=== PATIENT | male | born 1985 | race Caucasian/White ===

== ENCOUNTER 2019-01-15 07:47 | Emergency (ER) | payer OTHER ==
[2019-01-15 07:58] VITALS: BP 123/91
--- NOTE | 2019-01-15 08:10 | ED Physician Documentation ---
PD HPI LOWER EXT INJURY - Stated complaint Stated Complaint: ANKLE INJURY - Chief complaint Chief Complaint: Ext Problem - Additional information Additional information: This is a 33-year-old male who denies past medical history presents with left ankle pain since Tuesday. On Tuesday he was walking the house and he impacted his left lateral malleolar region of his ankle on a wooden toy that was sitting out. He had immediate swelling in the area, and he has been able to walk on it but the pain is not subsided over the recent several days. He has been icing it and wrapping it and he does not feel that has made significant improvement. The pain is mild to moderate rest, severe with pressure on the area Review of Systems Skin: reports: Other (+ for swelling an bruising in ankle) Musculoskeletal: reports: Joint pain PD PAST MEDICAL HISTORY - Past Medical History Past Medical History: No - Past Surgical History Past Surgical History: No - Present Medications Home Medications: Ambulatory Orders Medication Instructions Recorded Confirmed Ibuprofen [Motrin] 800 mg PO Q8H PRN #30 tablet 01/15/19 - Allergies Allergies/Adverse Reactions: Allergies Allergy/AdvReac Type Severity Reaction Status Date / Time No Known Drug Allergies Allergy Verified 01/15/19 07:58 - Social History Does the pt smoke?: No Smoking Status: Never smoker PD ED PE NORMAL - Vitals Vital signs reviewed: Yes - General General: Alert and oriented X 3 - HEENT HEENT: Atraumatic - Cardiac Cardiac: Strong equal pulses - Respiratory Respiratory: No respiratory distress - Abdomen Abdomen: Non distended - Extremities Extremities: Other (There is swelling and slight ecchymosis just anterior to the left lateral mall bolus. The spot is tender to palpation. The inferior aspect of the malleolus is nontender. Remainder of the foot is atraumatic in appearance, is no tenderness to the tarsals, Metatarsals, or toes. Patient has full active range of motion of his ankle with excellent strength, brisk capillary refill over his digits, and sensation is intact light touch.) Results - Vitals Vitals: Vital Signs - 24 hr 01/15/19 07:56 Temperature 37.0 C Heart Rate 72 Respiratory 19 Rate Blood Pressure 123/91 H O2 Saturation 100 Oxygen O2 Source Room air - Rads (name of study) ankle XR L Radiology: Final report received (No fracture, small tibiotalar effusion suspected) PD MEDICAL DECISION MAKING - ED course Complexity details: considered differential (Sprain, strain, fracture, avulsion fracture, contusion, tendinitis.) ED course: Pt presents with ankle pain after impacting it, he is neurovascularly intact and able to bear weight. XR shows a possible small effusion, no fracture. I discussed that he likely has a contusion and reviewed RICE. He should follow up with his PCP if he has continued symptoms in 1 week. ED return precautions reviewed and patient was discharged. Departure - Departure Disposition: 01 Home, Self Care Clinical Impression: Pain in extremity Condition: Good Instructions: ED RICE Follow-Up: Your,PCP [Other] (For follow up on symptoms in 1 week if not improving) Prescriptions: Ibuprofen [Motrin] 800 mg PO Q8H PRN #30 tablet PRN Reason: PAIN &/OR FEVER Comments: You were seen today for left ankle pain. There may be some fluid around her left ankle joint, but there are no signs of a fracture or dislocation. Please rest ice elevate and compress the air ankle, take ibuprofen as prescribed. Follow-up with your primary care provider in 1 week if this is not improving. Discharge Date/Time: 01/15/19 09:01
--- NOTE | 2019-01-15 08:41 | XRAY Report ---
Reason: Impacted left ankle lateral mal on Tuesday Procedure Date: 01/15/2019 Accession Number: [id number] / [id number] Procedure: XR - Ankle 3 View LT CPT Code: FULL RESULT: EXAM: LEFT ANKLE RADIOGRAPHY EXAM DATE: 01/15/2019 08:24 AM. CLINICAL HISTORY: Impacted left ankle lateral mal on Tuesday. COMPARISON: None. TECHNIQUE: 3 views. FINDINGS: Bones: Normal. No fractures or bone lesions. Joints: Small tibiotalar joint effusion suspected. Spurring along the anterior aspect of distal tibia. No subluxations. The ankle mortise is normally aligned. Soft Tissues: Normal. No soft tissue swelling. IMPRESSION: 1. Small tibiotalar joint effusion suspected. 2. No fracture evident. RADIA
== END 2019-01-15 09:01 | disposition home or self-care (01) ==
LOC: ED 07:47
DX: M25.572 Pain in left ankle and joints of left foot (principal)
CPT/HCPCS: 99283; 99284

== ENCOUNTER 2020-03-12 16:36 | Emergency (ER) | payer OTHER ==
--- NOTE | 2020-03-12 17:00 | ED Physician Documentation ---
PD HPI UPPER EXT INJURY - Stated complaint Stated Complaint: RT FINGER MID PX - Chief complaint Chief Complaint: Trauma Ext - History obtained from History obtained from: Patient - History of Present Illness Location: Right - Additonal information Additional information: 34-year-old gentleman, he is active duty in the [employer]. About 4 weeks ago jammed his right fourth finger and has persistent and actually worsening pain especially with motion. Review of Systems Constitutional: reports: Reviewed and negative Nose: reports: Reviewed and negative Throat: reports: Reviewed and negative PD PAST MEDICAL HISTORY - Past Medical History Past Medical History: Yes Cardiovascular: None Respiratory: None Neuro: None Endocrine/Autoimmune: None GI: None : None HEENT: None Psych: None Musculoskeletal: None, Chronic back pain Derm: None - Past Surgical History Past Surgical History: No - Present Medications Home Medications: Ambulatory Orders Medication Instructions Recorded Confirmed Ibuprofen [Motrin] 800 mg PO Q8H PRN #30 tablet 01/15/19 - Allergies Allergies/Adverse Reactions: Allergies Allergy/AdvReac Type Severity Reaction Status Date / Time No Known Drug Allergies Allergy Verified 03/12/20 16:44 - Social History Does the pt smoke?: No Smoking Status: Current every day smoker Does the pt drink ETOH?: Yes Does the pt have substance abuse?: No - Immunizations Immunizations are current?: Yes PD ED PE NORMAL - Vitals Vital signs reviewed: Yes - General General: Alert and oriented X 3, No acute distress - Extremities Extremities: Other (TTP R 4th prox phalanx, no limited ROM or deformity) - Neuro Neuro: Alert and oriented X 3, Normal speech Results - Vitals Vitals: Vital Signs - 24 hr 03/12/20 03/12/20 16:44 17:22 Temperature 37 C 36.9 C Heart Rate 75 78 Respiratory 16 19 Rate Blood Pressure 130/71 123/75 O2 Saturation 99 97 Oxygen O2 Source Room air - Rads (name of study) Three-view x-ray of the right fourth finger Radiology: EMP read contemporaneously (Normal, no fracture) Procedures - Splint (location) Right fourth finger Splint applied by: Physician Type of splint: Metal foam finger splint Other: Patient tolerated well, No complications, Neurovascular intact Departure - Departure Disposition: 01 Home, Self Care Clinical Impression: Sprain of finger of right hand Qualifiers: Encounter type: initial encounter Finger: index finger Sprain of finger site: metacarpophalangeal joint Qualified Code(s): S63.650A - Sprain of metacarpophalangeal joint of right index finger, initial encounter Condition: Good Record reviewed to determine appropriate education?: Yes Instructions: ED Sprain Finger Comments: X-ray looks okay, suspect you sprained it 4 weeks ago and probably just is not improving because of continued use. Wear the splint for a couple of weeks fairly religiously but she can take it off for showering and sleeping. [place] at [place] juncture. Discharge Date/Time: 03/12/20 17:28
[2020-03-12 17:23] VITALS: BP 123/75
--- NOTE | 2020-03-12 17:24 | XRAY Report ---
PROCEDURE: Finger(s) RT INDICATIONS: 4th finger inj TECHNIQUE: AP hand, 3 views of the fourth finger(s) acquired. COMPARISON: None FINDINGS: Bones: No fractures or dislocations. No suspicious bony lesions. Soft tissues: No suspicious soft tissue calcifications. IMPRESSION: No trauma found, no foreign body seen. Reviewed by: Chandler Barrientos MD on 03/12/2020 5:23 PM PDT Approved by: Chandler Barrientos MD on 03/12/2020 5:23 PM PDT Station ID: [id number]
== END 2020-03-12 17:28 | disposition home or self-care (01) ==
LOC: ED 16:36
DX: S63.654A Sprain of metacarpophalangeal joint of right ring finger, initial encounter (principal); W23.0XXA Caught, crushed, jammed, or pinched between moving objects, initial encounter; Y92.009 Unspecified place in unspecified non-institutional (private) residence as the place of occurrence of the external cause; Y99.8 Other external cause status; F17.200 Nicotine dependence, unspecified, uncomplicated
CPT/HCPCS: 73140; 99282; 99283

== ENCOUNTER 2020-07-11 09:57 | Emergency (ER) | payer OTHER ==
[2020-07-11] MEDS ORDERED: methocarbamoL 500 MG TABLET PO STA (10:49)
[2020-07-11] MEDS ORDERED: KETOROLAC 60 MG/2 ML VIAL IM STA (10:49)
--- NOTE | 2020-07-11 10:54 | ED Physician Documentation ---
History of Present Illness - Stated complaint Stated Complaint: BACK PX - Chief complaint Chief Complaint: Back Pain - History obtained from History obtained from: Patient - Additonal information Additional information: 32-year-old man with past medical history of chronic back pain and multiple lumbar herniated disks presents with worsening chronic back pain over the past couple days refractory to ibuprofen and Tylenol. Pain is midline, nonradiating, aching, constant, severe, 5 out of 10. He does endorse some tingling numbness in the toes but no weakness and no urinary or fecal incontinence or retention or saddle anesthesia. Denies fevers. Review of Systems Constitutional: denies: Fever, Chills Musculoskeletal: reports: Back pain. denies: Extremity pain Neurologic: reports: Numbness. denies: Focal weakness PD PAST MEDICAL HISTORY - Past Medical History Cardiovascular: None Respiratory: None Neuro: None Endocrine/Autoimmune: None GI: None : None HEENT: None Psych: None Musculoskeletal: None, Chronic back pain Derm: None - Past Surgical History Past Surgical History: No - Present Medications Home Medications: Ambulatory Orders Medication Instructions Recorded Confirmed Ibuprofen [Motrin] 800 mg PO Q8H PRN #30 tablet 01/15/19 Ketorolac [Toradol] 10 mg PO Q6H #30 tablet 07/11/20 - Allergies Allergies/Adverse Reactions: Allergies Allergy/AdvReac Type Severity Reaction Status Date / Time No Known Drug Allergies Allergy Verified 07/11/20 10:06 - Social History Does the pt smoke?: No Smoking Status: Current every day smoker Does the pt drink ETOH?: Yes Does the pt have substance abuse?: No - Immunizations Immunizations are current?: Yes PD ED PE NORMAL - Vitals Vital signs reviewed: Yes - General General: Alert and oriented X 3 - HEENT HEENT: Atraumatic - Back Back: No CVA TTP, Other (lumbar spine discomfort to palpation around L3-4) - Derm Derm: Normal color - Extremities Extremities: No deformity, Other (normal sensation, pulses, cap refill, strength in BL LE) - Neuro Neuro: Alert and oriented X 3 - Psych Psych: Normal mood, Normal affect Results - Vitals Vitals: Vital Signs - 24 hr 07/11/20 10:03 Temperature 36.3 C L Heart Rate 71 Respiratory 20 Rate Blood Pressure 117/72 O2 Saturation 95 Oxygen O2 Source Room air PD MEDICAL DECISION MAKING - ED course ED course: 35-year-old man with past medical history of chronic back pain presents with back pain today without red flags for cord compression or infectious cause. He is not driving, having been dropped off of a his therefore I will give him Robaxin and Toradol. Prescription for Toradol given. Return precautions given. Departure - Departure Disposition: Home, Self Care Clinical Impression: Back pain Condition: Good Instructions: ED Chronic Pain Management Prescriptions: Ketorolac [Toradol] 10 mg PO Q6H #30 tablet Comments: [place] 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 Return to the ED if you experience sudden weakness, fever, urinary or fecal incontinence or retention. Return for any new or worsening symptoms or other concerns. Forms: Activity restrictions
[2020-07-11 11:08] VITALS: BP 115/72
== END 2020-07-11 11:07 | disposition home or self-care (01) ==
LOC: ED 09:57
DX: M54.5 Low back pain (principal); G89.29 Other chronic pain; R20.0 Anesthesia of skin
CPT/HCPCS: 96372; 99283; 99284; A9270

== ENCOUNTER 2020-09-28 08:28 | Emergency (ER) | payer OTHER ==
--- OUTSIDE RECORDS SUMMARY | 2020-09-28 08:31 | EXTERNAL MEDICAL SUMMARY RPT | Continuity of Care Document ---
:1985 Demographics Phone Unavailable Preferred Language Turkmen Marital Status Unknown Baptism Affiliation Unknown Race Unknown Ethnic Group Unknown Author Organization [place] Address [address] [phone] Phone Problems date description facility [id number] Radiculopathy, lumbosacral region [facility] Social History date description facility [phone]
--- OUTSIDE RECORDS SUMMARY | 2020-09-28 08:34 | EXTERNAL MEDICAL SUMMARY RPT | Continuity of Care Document ---
:1985 Demographics Phone Unavailable Preferred Language Bengali Marital Status Unknown Rastafari Affiliation Unknown Race Unknown Ethnic Group Unknown Author Organization [place] Address [address] [phone] Phone Problems date description facility [id number] Radiculopathy, lumbosacral region [facility] Social History date description facility [phone]
[2020-09-28 08:41] VITALS: BP 137/92
--- NOTE | 2020-09-28 09:06 | ED Physician Documentation ---
PD HPI LOWER EXT INJURY - Stated complaint Stated Complaint: R FOOT PX - Chief complaint Chief Complaint: Ext Problem - History obtained from History obtained from: Patient - History of Present Illness PD HPI LOW EXT INJURY LOCATION: Right, Other (heal) Type of injury: Other (unknown) Where injury occurred: Home Timing - onset: Yesterday Timing - duration: Days (1) Timing - details: Abrupt onset, Still present Improved by: Rest Worsened by: Other (weight bearing) Associated symptoms: No: Weakness, Numbness, Tingling, Swelling, Discolored Contributing factors: No: Anticoagulated, Prior ortho surgery Similar symptoms before: Has not had sx before Recently seen: Not recently seen - Additional information Additional information: Previously well 35-year-old male has awoken with pain in his right heel with weightbearing. He does not have pain at rest but does have pain if he tries to stand up. Review of Systems Constitutional: denies: Fever Eyes: denies: Decreased vision Ears: denies: Ear pain Nose: denies: Congestion Respiratory: denies: Cough GI: denies: Constipation, Diarrhea PD PAST MEDICAL HISTORY - Past Medical History Cardiovascular: None Respiratory: None Neuro: None Endocrine/Autoimmune: None GI: None : None HEENT: None Psych: None Musculoskeletal: None, Chronic back pain Derm: None - Past Surgical History Past Surgical History: No - Present Medications Home Medications: Ambulatory Orders Medication Instructions Recorded Confirmed Cyclobenzaprine [Flexeril] 10 mg PO DAILY PRN 09/28/20 09/28/20 - Allergies Allergies/Adverse Reactions: Allergies Allergy/AdvReac Type Severity Reaction Status Date / Time No Known Drug Allergies Allergy Verified 09/28/20 08:41 - Social History Does the pt smoke?: No Smoking Status: Current every day smoker Does the pt drink ETOH?: Yes Does the pt have substance abuse?: No - Immunizations Immunizations are current?: Yes PD ED PE NORMAL - Vitals Vital signs reviewed: Yes (hpyertensive ) - General General: Alert and oriented X 3, No acute distress, Well developed/nourished - HEENT HEENT: Atraumatic, PERRL, EOMI - Respiratory Respiratory: No respiratory distress - Derm Derm: Normal color, Warm and dry, No rash - Extremities Extremities: No deformity, No edema, Other (There is no specific tenderness even to the point of where the patient has his pain. There is no palpable heel spur. There is no swelling or erythema or evidence of foreign body.) - Neuro Neuro: Alert and oriented X 3, public health representative 2-12 intact, No motor deficit, No sensory deficit, Normal speech Eye Opening: Spontaneous Motor: Obeys Commands Verbal: Oriented GCS Score: 15 - Psych Psych: Normal mood, Normal affect Results - Vitals Vitals: Vital Signs - 24 hr 09/28/20 08:30 Temperature 36.8 C Heart Rate 78 Respiratory 16 Rate Blood Pressure 137/92 H O2 Saturation 98 Oxygen O2 Source Room air - Rads (name of study) foot Radiology: Prelim report reviewed (Impression: No acute osseous abnormality. Mild degenerative changes of the foot and ankle.), EMP read indepedently, See rad report PD MEDICAL DECISION MAKING - ED course Complexity details: reviewed results, re-evaluated patient, considered differential, d/w patient ED course: 35-year-old male with pain to the right heel does not have any recollection of any injury to the area he does wear work boots and he has not changed these he denies any climbing on ladders or striking his heel on up shovel or any other vigorous activity involving his heel. He does have by history what sounds like plantar fasciitis and he does not have a bone spur on his plain film. He is administered dexamethasone in the emergency department I have given him instructions for plantar fasciitis to include stretching. Departure - Departure Disposition: 01 Home, Self Care Clinical Impression: Plantar fasciitis of right foot Condition: Stable Instructions: ED Plantar Fasciitis Follow-Up: [facility] [Provider Group]
--- NOTE | 2020-09-28 09:24 | XRAY Report ---
PROCEDURE: Foot 3 View RT INDICATIONS: heal pain TECHNIQUE: 3 views of the foot were acquired. COMPARISON: None FINDINGS: Bones: There is no fracture or dislocation. Mild degenerative changes of the first metatarsophalangea l joint as well as the talonavicular and tibiotalar joints. Soft tissues: No tibiotalar joint effusion. Small enthesophyte at the Achilles insertion. The Achill es is otherwise normal. IMPRESSION: No acute osseous abnormality. Small and these findings at the Achilles insertion of the calcaneus. Mild degenerative changes of the foot and ankle. Reviewed by: Desean Tompkins DO on 09/28/2020 8:23 AM SCAR Approved by: Desean Tompkins DO on 09/28/2020 8:23 AM SCAR Station ID: [id number]
[2020-09-28] MEDS ORDERED: DEXAMETHASONE 10 MG/ML VIAL PO STA (09:40)
[2020-09-28] MEDS ORDERED: CHERRY SYRUP 10 ML UDC PO ONE (09:40)
== END 2020-09-28 09:47 | disposition home or self-care (01) ==
LOC: ED 08:28
DX: M72.2 Plantar fascial fibromatosis (principal); M19.071 Primary osteoarthritis, right ankle and foot
CPT/HCPCS: 73630; 99283; 99284; A9270

== ENCOUNTER 2020-11-10 15:20 | Emergency (ER) | payer OTHER ==
--- OUTSIDE RECORDS SUMMARY | 2020-11-10 15:22 | EXTERNAL MEDICAL SUMMARY RPT | Continuity of Care Document ---
:1985 Demographics Phone Unavailable Preferred Language Unknown Marital Status Unknown Mandaeism Affiliation Unknown Race Unknown Ethnic Group Unknown Author Organization [place] Address [address] [phone] Phone Allergies Encounters Medications Problems Results
[2020-11-10 15:31] VITALS: BP 134/85
--- OUTSIDE RECORDS SUMMARY | 2020-11-10 15:31 | EXTERNAL MEDICAL SUMMARY RPT | Continuity of Care Document ---
:1985 Demographics Phone Unavailable Preferred Language Unknown Marital Status Unknown Faith Affiliation Unknown Race Unknown Ethnic Group Unknown Author Organization [place] Address [address] [phone] Phone Allergies Encounters Medications Problems Results
--- NOTE | 2020-11-10 15:57 | XRAY Report ---
PROCEDURE: Shoulder 3 View RT INDICATIONS: fall, shoulder pain TECHNIQUE: 3 views of the shoulder were acquired. COMPARISON: None. FINDINGS: Bones: No fractures or dislocations. No suspicious bony lesions. Visualized ribs appear intact. Soft tissues: No suspicious soft tissue calcifications. The visualized lung demonstrates a normal a ppearance. IMPRESSION: Negative for acute fracture. If it would be helpful for clinical management decision making, please consider a dedicated, schedule d shoulder MRI for further evaluation (assuming that there is no contraindication). Reviewed by: Mil Haynes MD on 11/10/2020 2:55 PM SCAR Approved by: Mil Haynes MD on 11/10/2020 2:55 PM SCAR Station ID: [id number]
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
== END 2020-11-10 16:31 | disposition home or self-care (01) ==
LOC: ED 15:20
DX: S43.401A Unspecified sprain of right shoulder joint, initial encounter (principal); V18.2XXA Unspecified pedal cyclist injured in noncollision transport accident in nontraffic accident, initial encounter; Y93.55 Activity, bike riding
CPT/HCPCS: 99283; 99284

== ENCOUNTER 2022-05-05 14:49 | Outpatient (CLI) | payer OTHER ==
[2022-05-05 15:34] VITALS: BP 116/72
--- NOTE | 2022-05-05 15:34 | SLEEP CARE CONSULTATION ---
Information from patient questionnaire entered by Dilcia Byrne. I have reviewed and concur with the information entered by Dilcia Byrne. This document represents the service I personally performed and the decisions made by me, Stephanie Mcgarry ARNP. History of Present Illness Service Date and Time: 05/05/2022 1449 Reason for Visit: New patient, Previously diagnosed sleep apnea, sleep apnea on CPAP therapy Chief Complaint: reports: Insomnia, Unrefreshed sleep, Snoring, Excessive daytime sleepiness, Observed pauses in breathing, Fatigue, Frequent awakenings at night Date of Onset: SEVERAL YEARS Usual bedtime: 9-10PM Time it takes to fall asleep: 1-5HRS Snores at night: Yes Observed to quit breathing while asleep: Yes Sleeps alone due to snoring: No Number of times waking at night: 4+ Reasons for waking at night: reports: Snoring, Other (UNKNOWN REASONS ) Toss, Turn, or Twitch while sleeping: Yes Recalls having dreams: Yes Usually gets out of bed at: 6741-0109 Feels refreshed in the morning: No Morning headache: Yes (3-4 days a week; RESOLVES 1-2HRS) Sleepy or fatigued during the day: Yes Ever fallen asleep while driving: No Takes day naps: No Dreams during day naps: No Prior sleep studies: Yes ([facility] [place] 2020) Additional HPI information: KELL GUAJARDO was previously diagnosed to have unknown, AHI unknown, sleep apnea- hypopnea syndrome and comes in today to establish care for CPAP therapy. His current complaints are excessive daytime sleepiness, fatigue, frequent night awakenings, observed pauses in breathing, snoring and unrefreshed sleep. He has been having difficulty using his CPAP because he cannot get comfortable enough to fall asleep with the mask on his face. He was deployed by the [employer] and he states he tried to wear it every night but it was difficult. He returned home and when he turned his machine on it started making very loud noises when he would turn the machine on. He is trying to have his machine repaired or repl aced. - Parasomnia Symptoms Ever been unable to move upon waking from sleep: No Walks in sleep: No Talks in sleep: Yes Ever acted out dreams in sleep: No Ever felt weak in the knees when startled or emotional: No Bothered by creepy, crawly, restless sensations in legs: Yes Problems with memory or concentration: Yes (little bit of both) CPAP Compliance Data - Data Reviewed with Patient Average duration of nightly device use: 1 hour 47 minutes Compliance rate %: 0 (29/180 days used) Current pressure setting (cmH2O): 5-15 Average residual AHI: 0.3 Central apnea: 0.1 Obstructive apnea: 0.2 Compliance data discussion: He has a ResMed Airsense 10 machine that has been making a very loud noise when using the machine. He is using a full face mask. He received this machine from [facility] [employer] [place] last year. He has not been able to use it due to the noise. He also has limited use before that because of his deployment. Subjective Missed days of use due to: reports: travel (on deployment, hard to sleep with machine on) Patient concerns: reports: mask discomfort. 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 Patient is and lives in [place]. Have you smoked in the past 12 months: Yes (VAPE AND CIGAR OCCASSIONALLY ) Alcohol use: Yes Alcohol amount and frequency: 2-4 DRINKS A WEEK Caffeine use: Yes Caffeine amount and frequency: 2-3 CUPS EVERYDAY Family History Family history of sleep disordered breathing: Yes Family Hx Sleep Apnea: Father: Snoring, Sleep apnea - Treated, Grandparent: Snoring, Sleep apnea - Treated Allergies and Home Medications Known drug allergies: No Drug allergies reviewed: Yes (NKDA) Home medication list reviewed: Yes Allergy and home medication list: Medications: Naproxen, prn Review of Systems Weight gain over past 5 years: 50 Weight loss over past 5 years: 20 Cardiovascular: denies: high blood pressure Gastrointestinal: denies: heartburn Neurological: denies: headaches Psychiatric: reports: anxiety Ear/Nose/Throat: reports: injury to nose, wisdom teeth removed. denies: tonsillectomy Endocrine: reports: sluggishness Musculoskeletal: reports: joint pain, neck pain, back pain, joint swelling Physical Exam Vital signs obtained and entered by: DILCIA Willis MA Blood Pressure: 116/72 (LEFT ARM) Cuff size: regular Heart Rate: 76 O2 Saturation: 99 Height: 6 ft 1 in Weight: 284 lb 3.2 oz Body Mass Index: 37.5 BMI Classification: Obese Neck circumference: 19 Impression and Plan 1. Obstructive Sleep Apnea-Hypopnea Syndrome, unknown, with poor treatment compliance and unknown apnea control. Patient has had limited time on his CPAP due to loud noise coming from his machine and mask discomfort from his full face mask. He would like to have the machine checked out and try a nasal cushion mask. We have requested a copy of his sleep study from [facility] in [facility]. I will write prescription to have machine serviced to check for malfunction at his [facility], [facility]. If it is not repairable he may receive a new device. I will have him follow up in about 1-2 months or after he obtains new device. Patient's apnea severity and rationale for treatment to reduce apnea, improve sleep quality and reduce cardiovascular and cerebrovascular events was reviewed. 2. Obesity, unspecified. Currently patients BMI is 37.5. Obesity increases the risk of apnea, CPAP pressure requirements and overall health risks especially cardiovascular and diabetes. Thus patient is advised to lose weight. * Obtain copy of last sleep study * Continue auto CPAP pressure at 5-15 cmH2O * Service machine for loud noise when turned on * Notify me if snoring with mask or feeling that the pressure is too much or too little * Attempt to lose weight * Call this office if any problems using CPAP * Return for follow up in 1-2 months or after he obtains new device, or sooner if concerns arise Counseling Topics: Weight loss health impact Visit Type: In Office Time Spent with Patient (minutes): 36 Provider Statement: I spent 100% of the Face to Face Visit with the patient with greater than 50% spent counseling the patient and coordination of care.
== END 2022-05-05 14:50 | disposition home or self-care (01) ==
LOC: SC 14:49
PROVIDERS: ATTEND Nurse Practitioner Family
DX: G47.33 Obstructive sleep apnea (adult) (pediatric) (principal); E66.9 Obesity, unspecified; Z68.37 Body mass index [BMI] 37.0-37.9, adult
CPT/HCPCS: 99203; 99212

== ENCOUNTER 2022-07-29 09:02 | Outpatient (CLI) | payer OTHER ==
[2022-07-29 09:44] VITALS: BP 136/80
--- NOTE | 2022-07-29 09:44 | SLEEP CARE CONSULTATION ---
Information from patient questionnaire entered by Dilcia Byrne. I have reviewed and concur with the information entered by Dilcia Byrne. This document represents the service I personally performed and the decisions made by , Stephanie Mcgarry ARNP. History of Present Illness Service Date and Time: 07/29/2022 09 Previous diagnosis: Mild, Obstructive Sleep Apnea-Hypopnea Syndrome AHI: 7.2 (in 08/2020) Reason for follow up: three month (3 MONTH F/U) Equipment type: CPAP (RESMED Airsense 10 s/u 10/2020) Equipment obtained from: Other ([facility], getting supplies) Mask style: Nasal pillows Mask brand: Resmed (Airfit [id number]) Backup mask available: Yes (other mask) Prior sleep studies: Yes ([facility] 2020) HPI additional information: KELL GUAJARDO was diagnosed to have mild, AHI 7.2, obstructive sleep apnea-hypopnea syndrome and returned today for CPAP therapy three month follow- up. Sleep Study - Results Prior sleep studies: Yes ([facility] 2020) CPAP Compliance Data - Data Reviewed with Patient Average duration of nightly device use: 46 minutes Compliance rate %: 0 ( days used) Current pressure setting (cmH2O): 5-15 (median 5.0, avg 6.6, max 7.4) Average residual AHI: 6.2 Central apnea: 0.0 Obstructive apnea: 5.1 Hypopnea: 0.0 Average large leak: 7.4 LPM Subjective Missed days of use due to: reports: other (pressure issues) Patient concerns: denies: aerophagia, mask discomfort, air blowing in eyes, mask leak noise, condensation in mask/hose, nasal congestion, dry mouth, nose, throat, epistaxis Observed to snore while using device: No Current pressure setting perceived as: too high On therapy, patient: reports: other (not able to use mask due to pressure, no changes noted) Initial [place] Sleepiness Scale score: 14 (05/05/2022) Current [place] Sleepiness Scale score: 14 (07/29/22) Allergies and Home Medications Drug allergies reviewed: Yes (NKDA) Home medication list reviewed: Yes (no changes) Review of Systems Review of systems same as previous: Yes (no changes) Physical Exam Vital signs obtained and entered by: DILCIA Willis MA Blood Pressure: 136/80 (LEFT ARM) Cuff size: regular Heart Rate: 83 O2 Saturation: 99 Height: 6 ft 1 in Weight: 294 lb 6.4 oz Body Mass Index: 38.8 BMI Classification: Obese Impression and Plan 1. Obstructive Sleep Apnea-Hypopnea Syndrome, mild, with poor treatment compliance and fair apnea control. Patient has not been able to tolerate using his CPAP because the pressure feels too high with his new nasal pillows mask. I double checked and he does have it on the right setting of nasal pillows on his AirSense 10 with an EPR of 3. He states the pressure feels too high when he initially puts his mask on. He does have the ramp pressure starting at 4 cmH2O for 20 minutes. He is then set at 5-15 cm H2O. The patients pressure will be changed to autoCPAP 4-6 cmH20 for patient comfort so he can get more comfortable with pressure. I also changed his ramp time to 30 minutes and showed patient how to adjust this further if he needs a longer ramp time. He voice understanding. Patient advised to contact me if pressure change is uncomfortable so that it can be adjusted. Goals for apnea control discussed. Patient's apnea severity and rationale for treatment to reduce apnea, improve sleep quality and reduce cardiovascular and cerebrovascular events was reviewed. I also reviewed the benefit of consistent device use of CPAP for anxiety. I will have him follow up in 1-2 months to recheck compliance but encouraged him to call if the pressure is still uncomfortable. 2. Obesity, unspecified. Currently patients BMI is 38.8. Obesity increases the risk of apnea, CPAP pressure requirements and overall health risks especially cardiovascular and diabetes. Thus patient is advised to lose weight. * Change auto CPAP pressure to 4-6 cmH2O * Notify me if snoring with mask or feeling that the pressure is too much or too little * Attempt to lose weight * Call this office if any problems using CPAP * Return for follow up in 1-2 months, or sooner if concerns arise Counseling Topics: Spare mask, Weight loss health impact Visit Type: In Office Time Spent with Patient (minutes): 22 Provider Statement: I spent 100% of the Face to Face Visit with the patient with greater than 50% spent counseling the patient and coordination of care.
== END 2022-07-29 09:03 | disposition home or self-care (01) ==
LOC: SC 09:02
PROVIDERS: ATTEND Nurse Practitioner Family
DX: G47.33 Obstructive sleep apnea (adult) (pediatric) (principal); E66.9 Obesity, unspecified; Z68.38 Body mass index [BMI] 38.0-38.9, adult
CPT/HCPCS: 99212; 99213

== ENCOUNTER 2022-10-29 14:52 | Outpatient (CLI) | payer OTHER ==
--- NOTE | 2022-10-29 15:14 | Sleep Patient Instructions ---
Sleep Center Visit Summary - Patient Visit Information Reason for Visit: 3 month followup for CPAP therapy - Patient Instructions Additional Instructions: You were here for follow up of CPAP therapy. You will be continued on CPAP therapy with pressure at 4-6 cmH2O. You should follow up with sleep care in 3 months. You may contact us sooner for any questions or concerns. - Clinic Information Contact: [facility] [address] [place] [address] [email or web address] T: [phone]
--- NOTE | 2022-10-29 15:20 | SLEEP CARE CONSULTATION ---
Information from patient questionnaire entered by Dilcia Byrne. I have reviewed and concur with the information entered by Dilcia Byrne. This document represents the service I personally performed and the decisions made by me, Stephanie Mcgarry ARNP. History of Present Illness Service Date and Time: 10/29/2022 1452 Previous diagnosis: Mild, Obstructive Sleep Apnea-Hypopnea Syndrome AHI: 7.2 Reason for follow up: three month (F/U) Equipment type: CPAP (RESMED Airsense 10, 10/2020) Equipment obtained from: Other Mask style: Full face (3B [place]) Backup mask available: Yes (other mask) Last cushion change: 3 weeks Prior sleep studies: Yes ([facility] 2020) HPI additional information: KELL GUAJARDO was diagnosed to have mild, AHI 7.2, obstructive sleep apnea- hypopnea syndrome and returned today for CPAP therapy three month follow-up. Sleep Study - Results Prior sleep studies: Yes ([facility]) CPAP Compliance Data - Data Reviewed with Patient Average duration of nightly device use: 1 hour 50 minutes Compliance rate %: 2 ( days used; 7 % in last 30 days) Current pressure setting (cmH2O): 4-6 Average residual AHI: 2.4 Central apnea: 0.1 Obstructive apnea: 2.0 Average large leak: 4.5 L/min Subjective Missed days of use due to: reports: mask issues, travel Patient concerns: reports: mask discomfort, mask leak noise (breathing noises from machine with full face mask). denies: aerophagia, air blowing in eyes, condensation in mask/hose, nasal congestion, dry mouth, nose, throat, epistaxis Observed to snore while using device: No Current pressure setting perceived as: comfortable On therapy, patient: reports: sleeping better, more rested overall. denies: drowsiness while driving Initial [place] Sleepiness Scale score: 14 (05/05/2022) Current [place] Sleepiness Scale score: 15 (10/29/22) Allergies and Home Medications Known drug allergies: No Drug allergies reviewed: Yes Home medication list reviewed: Yes (no changes) Allergy and home medication list: Allergies No Known Drug Allergies Allergy Review of Systems Review of systems same as previous: Yes (no changes) Physical Exam Vital signs obtained and entered by: DILCIA Willis MA Blood Pressure: 136/80 (LEFT ARM) Cuff size: long Heart Rate: 84 O2 Saturation: 98 Height: 6 ft 1 in Weight: 294 lb 12.8 oz Body Mass Index: 38.9 BMI Classification: Obese Impression and Plan 1. Obstructive Sleep Apnea-Hypopnea Syndrome, mild, with poor treatment compliance and good apnea control. On CPAP therapy, the patient has better sleep quality and is more rested overall. He states he tried the nasal pillows and while it reduce the breathing noise from his machine he did not feel he got enough pressure. He was switched to a 3B [place]esta hybrid full face mask and he states it is comfortable. He wore it all night for 2 nights in last week. He states the breathing noise has returned but it is not bothering him as much. He has a fan on that covers the noise. He also tells me that he thinks the modem is not connecting. He has an error message on his phone application that it cannot connect to his machine. I advised him to call [facility] about this message, they may need to look at his device or other connectivity. He voiced understanding. Patient's apnea severity and rationale for treatment to reduce apnea, improve s leep quality and reduce cardiovascular and cerebrovascular events was reviewed. I also reviewed the benefit of consistent device use of CPAP for anxiety. 2. Obesity, unspecified. Currently patients BMI is 38.9. Obesity increases the risk of apnea, CPAP pressure requirements and overall health risks especially cardiovascular and diabetes. Thus patient is advised to lose weight. * Continue auto CPAP pressure at 4-6 cmH2O * Notify me if snoring with mask or feeling that the pressure is too much or too little * Attempt to lose weight * Call this office if any problems using CPAP * Return for follow up in 3 months, or sooner if concerns arise Counseling Topics: Spare mask, Weight loss health impact Visit Type: In Office Time Spent with Patient (minutes): 16 Provider Statement: I spent 100% of the Face to Face Visit with the patient with greater than 50% spent counseling the patient and coordination of care.
[2022-10-29 15:22] VITALS: BP 136/80
== END 2022-10-29 14:53 | disposition home or self-care (01) ==
LOC: SC 14:52
PROVIDERS: ATTEND Nurse Practitioner Family
DX: G47.33 Obstructive sleep apnea (adult) (pediatric) (principal); E66.9 Obesity, unspecified; Z68.38 Body mass index [BMI] 38.0-38.9, adult
CPT/HCPCS: 99212

== ENCOUNTER 2023-05-27 09:18 | Outpatient (CLI) | payer OTHER ==
--- NOTE | 2023-05-27 10:07 | Sleep Patient Instructions ---
Sleep Center Visit Summary - Patient Visit Information Reason for Visit: 6 month followup - Patient Instructions Additional Instructions: You were here for follow up of CPAP therapy. You will be continued on CPAP therapy with pressure at 4-4.5 cmH2O. Please let us know if the pressure change is uncomfortable and we can make further adjustments of the pressure. You should follow up with sleep care in 6 months. You may contact us sooner for any questions or concerns. - Clinic Information Contact: [facility] [address] [place] [id number] [email or web address] T: [phone]
--- NOTE | 2023-05-27 10:13 | SLEEP CARE CONSULTATION ---
Information from patient questionnaire entered by Dilcia Byrne. I have reviewed and concur with the information entered by Dilcia Byrne. This document represents the service I personally performed and the decisions made by me, Stephanie Mcgarry ARNP. History of Present Illness Service Date and Time: 05/27/2023917 Previous diagnosis: Mild, Obstructive Sleep Apnea-Hypopnea Syndrome AHI: 7.2 Reason for follow up: six month (F/U) Equipment type: CPAP (RESMED Airsense 10, 10/2020 NEED MACHINE) Equipment obtained from: Other ([facility]; getting supplies) Mask style: Full face Backup mask available: Yes Last cushion change: last month Prior sleep studies: Yes ([facility]) HPI additional information: KELL GUAJARDO was diagnosed to have mild, AHI 7.2, obstructive sleep apnea- hypopnea syndrome and returned today for CPAP therapy six month follow-up. Sleep Study - Results Prior sleep studies: Yes ([facility] 2020) CPAP Compliance Data - Data Reviewed with Patient Average duration of nightly device use: 1 hour 46 minutes Compliance rate %: 3 (56/180 days used) Current pressure setting (cmH2O): 4-6 (avg 5.1) Average residual AHI: 0.7 Central apnea: 0.1 Obstructive apnea: 0.3 Hypopnea: 0.1 Average large leak: 2.1 L/min Subjective Missed days of use due to: reports: other (cannot tolerate the pressure) Patient concerns: denies: aerophagia, mask discomfort, air blowing in eyes, mask leak noise, condensation in mask/hose, nasal congestion, dry mouth, nose, throat, epistaxis Observed to snore while using device: No Current pressure setting perceived as: too high On therapy, patient: denies: drowsiness while driving Initial [place] Sleepiness Scale score: 14 (05/05/2022) Current [place] Sleepiness Scale score: 13 (05/27/23) Allergies and Home Medications Known drug allergies: No Drug allergies reviewed: Yes Home medication list reviewed: Yes (no changes) Allergy and home medication list: Allergies No Known Drug Allergies Allergy (Verified 05/26/23 09:12) Review of Systems Review of systems same as previous: Yes (BACK INJURY) Physical Exam Vital signs obtained and entered by: DILCIA Willis MA Blood Pressure: 148/93 (RIGHT ARM) Cuff size: regular Heart Rate: 89 O2 Saturation: 100 Height: 6 ft 1 in Weight: 292 lb 9.6 oz Body Mass Index: 38.6 BMI Classification: Obese Impression and Plan 1. Obstructive Sleep Apnea-Hypopnea Syndrome, mild, with poor treatment compliance and good apnea control. On CPAP therapy, the patient has better sleep quality and is more rested overall. Patient states he has been unable to use his machine because he has chronic back pain issues which have exacerbated recently and he is unable to tolerate wearing the mask as well as trying to get comfortable with his back pain. He also feels the pressure is too much and cannot tolerate the mask on. He feels the fullface mask is the most comfortable and he has no other issues with it. His pressure is currently set at 4-6 cmH2O but I will adjust it to 4-4.5 cmH2O because his average pressure use is 5.1 cmH2O with residual AHI at 0.7. 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 His last sleep study showed minimal episodes when sleeping on his sides. I encouraged him to sleep non-supine if he is unable to use his CPAP. I will have him follow-up when he returns from deployment in about 6 months for reevaluation. Patient's apnea severity and rationale for treatment to reduce apnea, improve sleep quality and reduce cardiovascular and cerebrovascular events was reviewed. I also reviewed the benefit of consistent device use of CPAP for anxiety. 2. Obesity, unspecified. Currently patients BMI is 38.6. Obesity increases the risk of apnea, CPAP pressure requirements and overall health risks especially cardiovascular and diabetes. Thus patient is advised to lose weight. * Change auto CPAP pressure to 4-4.5 cmH2O * Positional therapy when unable to wear CPAP mask * Notify me if snoring with mask or feeling that the pressure is too much or too little * Attempt to lose weight * Call this office if any problems using CPAP * Return for follow up in 6 months, or sooner if concerns arise Counseling Topics: Sleeping position, Spare mask, Weight loss health impact Follow up with Sleep Care in: 6 months Visit Type: In Office Time Spent with Patient (minutes): 25 Provider Statement: I spent 100% of the Face to Face Visit with the patient with greater than 50% spent counseling the patient and coordination of care.
[2023-05-27 10:15] VITALS: BP 148/93; O2SAT 100
== END 2023-05-27 09:19 | disposition home or self-care (01) ==
LOC: SC 09:18
PROVIDERS: ATTEND Nurse Practitioner Family
DX: G47.33 Obstructive sleep apnea (adult) (pediatric) (principal); E66.9 Obesity, unspecified; Z68.38 Body mass index [BMI] 38.0-38.9, adult
CPT/HCPCS: 99212; 99213

== ENCOUNTER 2024-01-17 11:49 | Emergency (ER) | payer OTHER ==
--- NOTE | 2024-01-17 12:06 | ED Physician Documentation ---
PD HPI UPPER EXT INJURY - Stated complaint Stated Complaint: L SHOULDER PX - Additonal information Additional information: Generally healthy 38-year-old gentleman with left shoulder pain. Patient was lifting a lot of heavy equipment at home yesterday did not have any prickly pain then but later on was on his hands and knees cleaning up underneath his workbench when had onset of pain. Pain with flexion and abduction. No numbness or tingling distally. No direct blow no trauma. Review of Systems Constitutional: denies: Fever, Chills PD PAST MEDICAL HISTORY - Past Medical History Cardiovascular: None Respiratory: None Neuro: None Endocrine/Autoimmune: None GI: None : None HEENT: None Psych: None Musculoskeletal: Chronic back pain Derm: None - Past Surgical History Past Surgical History: No - Present Medications Home Medications: Ambulatory Orders Medication Instructions Recorded Confirmed Amitriptyline HCl 1 tab PO DAILY PM 01/17/24 01/17/24 Ibuprofen [Motrin] 600 mg PO Q6H PRN #30 tab 01/17/24 - Allergies Allergies/Adverse Reactions: Allergies Allergy/AdvReac Type Severity Reaction Status Date / Time No Known Drug Allergies Allergy Verified 01/17/24 12:04 - Social History Does the pt smoke?: No Smoking Status: Never smoker Does the pt drink ETOH?: Yes Does the pt have substance abuse?: No - Immunizations Immunizations are current?: Yes - POLST Patient has POLST: No PD ED PE NORMAL - Vitals Vital signs reviewed: Yes - General General: Alert and oriented X 3 - HEENT HEENT: Atraumatic - Neck Neck: Supple, no meningeal sign - Cardiac Cardiac: RRR, No murmur - Respiratory Respiratory: No respiratory distress - Abdomen Abdomen: Normal bowel sounds - Extremities Extremities: Other - Psych Psych: Normal mood - Free text exam Free text exam: Slight tenderness palpation superiorly along the shoulder joint.. No deformity. No tenderness along his clavicle. No red hot swollen joints. He has pain with extension and abduction. Results - Vitals Vitals: Vital Signs - 24 hr 01/17/24 12:01 Temperature 36.4 C L Heart Rate 80 Respiratory 20 Rate Blood Pressure 126/93 H O2 Saturation 100 Oxygen O2 Source Room air PD Medical Decision Making - ED course Complexity details: reviewed old records, considered differential ( sprain, fracture, dislocation) ED course: xrays neg for fx, dislocation. suspect strain injury. plan sling for 48 hours then increase ROM, ibuprofen, ice Departure - Departure Disposition: 01 Home, Self Care Clinical Impression: Shoulder strain Instructions: ED Sprain Shoulder Prescriptions: Ibuprofen [Motrin] 600 mg PO Q6H PRN #30 tab PRN Reason: Pain
[2024-01-17 12:13] VITALS: BP 126/93; O2SAT 100
--- NOTE | 2024-01-17 13:13 | XRAY Report ---
PROCEDURE: Shoulder 2+V LT INDICATIONS: l shouder pain TECHNIQUE: 3 views of the shoulder were acquired. COMPARISON: None. FINDINGS: Bones: No fractures or dislocations. No suspicious bony lesions. Visualized ribs appear intact. Soft tissues: No suspicious soft tissue calcifications. The visualized lungs are within normal limi ts. IMPRESSION: No acute fracture. No osseous lesion. If symptoms and/or clinical suspicion for patholog y continue, further assessment with repeat plain films, or advanced imaging (e.g., CT, MRI, or bone s can) is recommended for further assessment. Reviewed by: Nguyen Archibald MD on 01/17/2024 1:11 PM PDT Approved by: Nguyen Archibald MD on 01/17/2024 1:11 PM PDT Station ID: [id number]
== END 2024-01-17 13:42 | disposition home or self-care (01) ==
LOC: ED 11:49
DX: S43.402A Unspecified sprain of left shoulder joint, initial encounter (principal); X58.XXXA Exposure to other specified factors, initial encounter; Y93.E9 Activity, other interior property and clothing maintenance
CPT/HCPCS: 99283

== ENCOUNTER 2024-02-06 07:50 | Outpatient (CLI) | payer OTHER ==
--- NOTE | 2024-02-06 13:09 | MRI Report ---
Shoulder LT WO CLINICAL HISTORY: 38 years of age, Male, LEFT SHOULDER PAIN. Comparison: No priors available Technique: Multiplanar, multisequence MRI of the left shoulder was performed without intravenous con trast. IV Contrast: Not Administered. Findings: Osseous acromial outlet: Moderate degenerative changes of the acromioclavicular joint. Type I acromio n. No os acromiale. Trace subacromial/subdeltoid bursitis. Rotator cuff muscles and tendons: Mild tendinosis of the supraspinatus. There is low-grade interstiti al tear at the footprint at the junction of supraspinatus and infraspinatus (series 6, image 11). Mil d tendinosis of the infraspinatus. The tendon of the teres minor is unremarkable. Low-grade interstit ial tear of the subscapularis. Muscles are intact without evidence of atrophy or edema. Labral and capsular structures: The visualized labrum appears intact on limited non-arthrogram sequen kieran. No paralabral cyst. Biceps tendon and anchor: Mild tenosynovitis of the extra-articular biceps tendon. The intra-articula r biceps tendon is grossly intact. Osseous and cartilaginous structures: Mild subchondral cystic changes in the posterior aspect of the greater tuberosity, reactive. No acute fracture. No focal chondral defect. Miscellaneous: No significant glenohumeral effusion. Mild subcoracoid bursitis. No intra-articular bodies. The remaining muscles are normal in bulk without evidence of atrophy or edema. IMPRESSION: 1.Moderate degenerative changes of the acromioclavicular joint. 2.Low-grade tear at the junction of the supraspinatus and infraspinatus. 3.Low-grade tear of the subscapularis. 4.Mild tenosynovitis of the extra-articular biceps tendon. Reviewed by: Radha Anton MD on 02/06/2024 1:08 PM PDT Approved by: Radha Anton MD on 02/06/2024 1:08 PM PDT Station ID: [id number]
== END 2024-02-06 07:51 | disposition home or self-care (01) ==
LOC: DI 07:50
PROVIDERS: ATTEND Student in an Organized Health Care Education/Training Program
DX: M19.012 Primary osteoarthritis, left shoulder (principal); M75.112 Incomplete rotator cuff tear or rupture of left shoulder, not specified as traumatic

== ENCOUNTER 2024-02-21 12:32 | Outpatient (CLI) | payer OTHER ==
--- NOTE | 2024-02-21 13:14 | Sleep Patient Instructions ---
Sleep Center Visit Summary - Patient Visit Information Reason for Visit: 9 month follow up - Patient Instructions Instructions Attached: Apnea Sleep Mouthpieces Additional Instructions: You were here for follow up of CPAP therapy. You will be discontinued on your CPAP. You have opted for an oral mandibular appliance to control your sleep apnea. A list of certified dentists in the area was provided for you to find a dentist to have your oral appliance made. Once you have the device, please call and make a follow up appointment. We need to see you after you have been using the appliance for a month. We will evaluate your response to therapy and order a follow up sleep study to check efficiency of treatment. You may contact us sooner for any questions or concerns. - Clinic Information Contact: [facility] [address] [place] [address] [email or web address] T: [phone]
--- NOTE | 2024-02-21 14:36 | SLEEP CARE CONSULTATION ---
Information from patient questionnaire entered by Dilcia Byrne. I have reviewed and concur with the information entered by Dilcia Byrne. This document represents the service I personally performed and the decisions made by , Stephanie Mcgarry ARNP. History of Present Illness Service Date and Time: 02/21/2024 1232 Previous diagnosis: Mild, Obstructive Sleep Apnea-Hypopnea Syndrome AHI: 7.2 Reason for follow up: other (9 MONTH F/U) Equipment type: CPAP (RESMED Airsense 10, 10/2020 NEED MACHINE) Equipment obtained from: Other ([facility]; getting supplies) Mask style: Full face Prior sleep studies: Yes ([facility] 2020) HPI additional information: KELL GUAJARDO was diagnosed to have mild, AHI 7.2, obstructive sleep apnea- hypopnea syndrome and returned today for CPAP therapy nine months follow-up. Sleep Study - Results Prior sleep studies: Yes ([facility] 2020) CPAP Compliance Data - Data Reviewed with Patient Compliance rate %: 0 (not using his CPAP) Subjective Missed days of use due to: reports: other (ANXIETY, MIGRAINES) Patient concerns: reports: mask discomfort (taking off 1.5 hours after going to sleep). denies: aerophagia, air blowing in eyes, mask leak noise, condensation in mask/hose, nasal congestion, dry mouth, nose, throat, epistaxis Observed to snore while using device: No Current pressure setting perceived as: comfortable On therapy, patient: denies: drowsiness while driving Initial [place] Sleepiness Scale score: 14 (05/05/2022) Current [place] Sleepiness Scale score: 13 (02/21/24) Allergies and Home Medications Known drug allergies: No Drug allergies reviewed: Yes Home medication list reviewed: Yes (Amitriptyline 100 mg per day) Allergy and home medication list: Allergies No Known Drug Allergies Allergy (Verified 02/21/24 12:57) Review of Systems Review of systems same as previous: No (MIGRAINES) Physical Exam Vital signs obtained and entered by: DILCIA Willis MA Blood Pressure: 143/88 (RIGHT ARM) Cuff size: long Heart Rate: 85 O2 Saturation: 98 Height: 6 ft 1 in Weight: 287 lb 3.2 oz Body Mass Index: 37.8 BMI Classification: Obese Impression and Plan 1. Obstructive Sleep Apnea-Hypopnea Syndrome, mild, with poor treatment compliance and unknown apnea control. 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 He discontinued use of the CPAP. He returns today because he would like to try the oral appliance that we talked about at our last appointment. A list of accredited dentists and one non-accredited dentist in general area given to patient to call for a consult. A prescription was given to start process. Patient advised to check insurance to see if oral appliance is covered. I will have patient follow up a month after he obtains his oral appliance to check effectiveness of treatment. If reduction of symptoms and comfortable with treatment, a polysomnography will be ordered using the oral appliance to check efficacy of treatment. He voiced understanding. Patient's apnea severity and rationale for treatment to reduce apnea, improve sleep quality and reduce cardiovascular and cerebrovascular events was reviewed. I also reviewed the benefit of consistent device use of apnea control for anxiety. 2. Obesity, unspecified. Currently patients BMI is 37.8. Obesity increases the risk of apnea, CPAP pressure requirements and overall health risks especially cardiovascular and diabetes. Thus patient is advised to lose weight. * Discontinue CPAP * Oral appliance * Attempt to lose weight * Call this office if any problems * Return for follow up one month after obtaining new oral device, or sooner if concerns arise Prescriptions: Other (Oral appliance) Follow up with Sleep Care in: other (one month after he obtains oral device) Visit Type: In Office Time Spent with Patient (minutes): 21 Provider Statement: I spent 100% of the Face to Face Visit with the patient with greater than 50% spent counseling the patient and coordination of care.
[2024-02-21 14:38] VITALS: BP 143/88; O2SAT 98
== END 2024-02-21 12:33 | disposition home or self-care (01) ==
LOC: SC 12:32
PROVIDERS: ATTEND Nurse Practitioner Family
DX: G47.33 Obstructive sleep apnea (adult) (pediatric) (principal); E66.9 Obesity, unspecified; Z68.37 Body mass index [BMI] 37.0-37.9, adult
CPT/HCPCS: 99212; 99213